=== PATIENT | male | born 2000 | race Caucasian/White ===

== ENCOUNTER 2021-09-03 20:06 | Emergency (ER) | payer SELFPAY ==
[2021-09-03 20:26] VITALS: BP 135/90; PULSE 68; RESP 18; TEMP 36.1; O2SAT 97; BMI 28.7
--- NOTE | 2021-09-03 20:39 | W.ED.GENADLT ---
HPI - General Adult General: Chief complaint: Nausea/Vomiting/Diarrhea Stated complaint: N/V abd pain Time Seen by Provider: 09/03/21 20:31 History of Present Illness: Patient is a 21-year-old male without any significant past medical history presents emergency room with complaints of right-sided abdominal pain since 4 PM today. Patient was at work when the pain suddenly started initially describes a generalized achy pain has now localized to the lateral right side. Patient denies any prior history of kidney stones, family hx of renal colic, hematuria or polyuria. Patient denies any new penile discharge or complaints. In the triage note, is noted the patient has diarrhea however to me patient denies having any diarrhea. Patient reports decreased p.o. intake. Patient reports significant nausea and vomiting with more than 30 episodes. Patient denies any fever but reports obstructive chills. Denies any chest pain, shortness breath palpitation, generalized weakness, rash, or focal neurological complaints. Onset:4pm Duration:ongoing Location:home Severity:moderate Associated symptoms: Reports nausea and vomiting; Deny chest pain, dyspnea, rash or palpitations Review of Systems Const: Denies: fever(s) or chills Eyes: Denies: change in vision ENMT: Denies: mouth pain Card: Denies: chest pain or palpitations Resp: Denies: dyspnea or non-productive cough GI: Reports: abdominal pain (+R sided abdominal pain), nausea and vomiting; Denies: diarrhea : Denies: dysuria Musc: Denies: extremity pain Skin/Breast: Denies: rash or new lesions Neuro: Denies: weakness in extremities Psych: Reports: other (Normal mood) Khoi/Lymph: Denies: easy bruising PFSH ED PFSH: Medical History (Updated 09/03/21 @ 21:46 by Eric Diaz MD) No pertinent past medical history Social History (Updated 09/03/21 @ 20:41 by Eric Diaz MD) Smoking and tobacco status: never smoked Alcohol intake: current Substance/Drug Use: never Physical Exam Const: COMMON NORMALS: alert HENMT: COMMON NORMALS: atraumatic HEAD & SCALP: atraumatic MOUTH: moist mucous membranes not abnormal Eye: COMMON NORMALS: EOMs intact bilaterally and conjunctivae normal CONJUNCTIVA: Yes conjunctivae normal Neck/C-Spine: COMMON NORMALS: full ROM and supple Resp: COMMON NORMALS: normal respiratory effort and clear to auscultation bilaterally AUSCULTATION: clear to auscultation bilaterally Cardio: COMMON NORMALS: regular rate RATE: regular rate GI: COMMON NORMALS: Soft to palpation PALPATION: Yes Soft to palpation OTHER: +Moderate R sided abd TTP. NO guarding rebound, guarding, rigidity. No CVA tenderness to percussion. Neg [place]/Neg McBurney's point tenderness, no suprabupic tenderness to palpation. Extremity: COMMON NORMALS: full ROM Neuro: SENSORIUM/ORIENTATION: Yes alert MOTOR EXAM: No Abnormal motor strength present and Other motor observations present (no focal motor deficits) Psych: COMMON NORMALS: speech normal SPEECH: Yes normal speech MOOD & AFFECT: Yes euthymic mood Course Vital Signs: Vital signs: Vital Signs Temperature 97 F L 09/03/21 20:26 Pulse Rate 68 09/03/21 20:26 Respiratory Rate 17 09/03/21 21:19 Blood Pressure 135/90 09/03/21 20:26 Pulse Oximetry 97 09/03/21 20:26 MDM - General Adult Medical Decision Making 21-year-old male presented to the emergency room with complaints of right-sided abdominal pain. On physical exam, patient is afebrile, has moderate tenderness to palpation on the right side. Work-up today showed count of 17.9K. CT of the pelvis showed enteritis with acute appendicitis without any perforation. Patient received cefazolin, morphine, Zofran with improvement in pain. Patient is kept n.p.o. We do not have general surgery coverage tonight patient. Patient will be transferred to outside hospital for management acute appendicitis. Case was discussed with Dr. Pagan who agreed with the transfer to [facility] for acute appendicitis. Disposition: Transfer to outside hospital Lab Data : 09/03/21 20:36 09/03/21 20:36 Radiology Impressions Abdomen/Pelvis CT 09/03/21 20:38 IMPRESSION: 1. Acute appendicitis, negative for abscess. 2. Bibasilar atelectasis versus minimal infiltrate. 3. Mildly prominent fluid in the small bowel without dilation may reflect an enteritis. ADDENDUM: 09/03/21 2144 THIS REPORT CONTAINS FINDINGS THAT MAY BE CRITICAL TO PATIENT CARE. The findings were verbally communicated via telephone conference with ERIC DIAZ at 9:42 PM CDT on 09/03/2021. The findings were acknowledged and understood. We discussed a prominent fluid in the small bowel may reflect an enteritis in the appropriate clinical setting, ileus may also be a consideration depending on the clinical scenario. Laboratory Results WBC 17.9 10^3/uL (4.0-10.0) H 09/03/21 20:36 RBC 5.36 10^6/uL (4.1-5.3) H 09/03/21 20:36 Hgb 16.8 g/dL (11.7-16.6) H 09/03/21 20:36 Hct 47.3 % (42.0-52.0) 09/03/21 20:36 MCV 88.2 fl (80-94) 09/03/21 20:36 MCH 31.3 pg (28.0-34.0) 09/03/21 20:36 MCHC 35.5 g/dL (30.0-36.0) 09/03/21 20:36 RDW 12.9 % (12.1-15.1) 09/03/21 20:36 Plt Count 301 10^3/cmm (130-400) 09/03/21 20:36 MPV 10.0 fL (7.4-10.4) 09/03/21 20:36 Neut % (Auto) 86.1 % 09/03/21 20:36 Lymph % (Auto) 7.2 % 09/03/21 20:36 [place] % (Auto) 4.7 % 09/03/21 20:36 Eos % (Auto) 1.3 % 09/03/21 20:36 Baso % (Auto) 0.4 % 09/03/21 20:36 Neut # (Auto) 15.37 10^3/uL (1.8-7.7) H 09/03/21 20:36 Lymph # (Auto) 1.3 10^3/uL (0.8-4.8) 09/03/21 20:36 [place] # (Auto) 0.8 10^3/uL (0.2-0.9) 09/03/21 20:36 Eos # (Auto) 0.2 10^3/uL (0.0-0.8) 09/03/21 20:36 Baso # (Auto) 0.1 10^3/uL (0.0-0.1) 09/03/21 20:36 Nucleated RBC % (auto) 0 % 09/03/21 20:36 Nucleated RBCs # 0.0 /100WBC 09/03/21 20:36 Sodium 137 mmol/L (136-145) 09/03/21 20:36 Potassium 4.2 mmol/L (3.5-5.1) 09/03/21 20:36 Chloride 99 mmol/L (98-107) 09/03/21 20:36 Carbon Dioxide 26 mmol/L (22-29) 09/03/21 20:36 Anion Gap 16.2 (5-19) 09/03/21 20:36 BUN 14 mg/dL (6-20) 09/03/21 20:36 Creatinine 0.9 mg/dL (0.7-1.2) 09/03/21 20:36 GFR Calculation 104.6 mL/min (90-130) 09/03/21 20:36 Glucose 133 mg/dL (65-115) H 09/03/21 20:36 Calculated Osmolality 286 mOsm/kg (285-295) 09/03/21 20:36 Calcium 10.3 mg/dL (8.5-10.5) 09/03/21 20:36 Total Bilirubin 0.8 mg/dL (0.15-1.2) 09/03/21 20:36 AST 28 U/L (0-40) 09/03/21 20:36 ALT 48 U/L (0-41) H 09/03/21 20:36 Alkaline Phosphatase 99 IU/L (40-130) 09/03/21 20:36 Total Protein 9.2 g/dL (6.6-8.7) H 09/03/21 20:36 Albumin 5.3 g/dL (3.5-5.2) H 09/03/21 20:36 Globulin 3.9 g/dL (1.3-4.6) 09/03/21 20:36 Lipase 20 U/L (13-60) 09/03/21 20:36 Imaging Data Other Imaging: Radiologist's impression: [address] [address] [address] Scan Report Signed with Addenda Patient: Sherman,Nando Unit #: [id number] : [id number] Age/Sex: 21 / M ADM Date: 09/03/21 Loc: ER Room/Bed: Attending Dr: Ordering Provider/Ordering MD: Eric Diaz MD Date of Service: 09/03/21 Procedure(s): CT abdomen pelvis w con* [id number] Accession Number(s): [id number] Report Number: [id number]/CT abdomen pelvis w con* [id number] THIS REPORT CONTAINS FINDINGS THAT MAY BE CRITICAL TO PATIENT CARE. The findings were verbally communicated via telephone conference with ERIC DIAZ at 9:42 PM CDT on 09/03/2021. The findings were acknowledged and understood. ? We discussed a prominent fluid in the small bowel may reflect an enteritis in the appropriate clinical setting, ileus may also be a consideration depending on the clinical scenario. ? Addendum Dictated By: ?Humphrey Alvarez MD Addendum Signed By: ?Humphrey Alvarez MD Signed Date/Time: 09/03/212143 Addendum Cosigned By: ? PROCEDURE INFORMATION: Exam: CT Abdomen And Pelvis With Contrast Exam date and time: 09/03/2021 9:07 PM Age: 21 years old Clinical indication: Nausea and vomiting; Additional info: Abd pain TECHNIQUE: Imaging protocol: Computed tomography of the abdomen and pelvis with contrast. Radiation optimization: All CT scans at this facility use at least one of these dose optimization techniques: automated exposure control; mA and/or kV adjustment per patient size (includes targeted exams where dose is matched to clinical indication); or iterative reconstruction. Contrast material: OMNI 300; Contrast volume: 95 ml; Contrast route: INTRAVENOUS (IV);? COMPARISON: CR Chest 1 [place] [id number] 12/07/2018 3:51 PM RADIATION DOSE METRICS: Total DLP (mGy-cm): 1941.54 FINDINGS: Lungs: Bibasilar atelectasis versus minimal infiltrate. Liver: Normal. No mass. Gallbladder and bile ducts: Normal. No calcified stones. No ductal dilation. Pancreas: Normal. No ductal dilation. Spleen: Normal. No splenomegaly. Adrenal glands: Normal. No mass. Kidneys and ureters: Normal. No hydronephrosis. Stomach and bowel: Mildly prominent fluid in the small bowel without dilation may reflect an enteritis. Appendix: Appendix dilated to 11.5 mm with wall thickening and surrounding edema consistent with acute appendicitis. Intraperitoneal space: Unremarkable. No free air. No significant fluid collection. Arteries: Unremarkable. No abdominal aortic aneurysm. Lymph nodes: Unremarkable. No enlarged lymph nodes. Urinary bladder: Unremarkable as visualized. Reproductive: Unremarkable as visualized. Bones/joints: Unremarkable. No acute fracture. Soft tissues: Unremarkable. CT/CT abdomen pelvis w con* [id number] IMPRESSION: 1. Acute appendicitis, negative for abscess. 2. Bibasilar atelectasis versus minimal infiltrate. 3. Mildly prominent fluid in the small bowel without dilation may reflect an enteritis. ? Dictated By: Humphrey Alvarez MD Signed By: Humphrey Alvarez MD Signed Date/Time: 09/03/212136 DD/ 06 Discharge Plan Discharge Patient Disposition: Transfer to ED Clinical Impression: Abdominal pain, Nausea & vomiting, Acute appendicitis Condition: Stable Prescriptions: No Action No Known Home Medications 0RF Referrals: Oz Lopez MD [Primary Care Provider] - Discharge Diet: Advance as tolerated Discharge Activity: Increase activity as tolerated Coding Level of Care Code ED [employer] for [place] Fwd Exam Comprehensive
[2021-09-03] MEDS: sodium chloride 0.9% 500 ML IV (20:40)
[2021-09-03] MEDS: famotidine 20 mg/2 mL INJ IVP (20:40)
[2021-09-03 20:43] LABS: Basophils # 0.1 10^3/uL (0.0-0.1); Basophils % 0.4 %; Eosinophils # 0.2 10^3/uL (0.0-0.8); Eosinophils % 1.3 %; Hematocrit 47.3 % (42.0-52.0); Hemoglobin 16.8 g/dL (11.7-16.6); Lymphocytes # 1.3 10^3/uL (0.8-4.8); Lymphocytes % 7.2 %; Mean Corpuscular HGB Conc 35.5 g/dL (30.0-36.0); Mean Corpuscular Hemoglobin 31.3 pg (28.0-34.0); Mean Corpuscular Volume 88.2 fl (80-94); Monocytes # 0.8 10^3/uL (0.2-0.9); Monocytes % 4.7 %; Neutrophils # 15.37 10^3/uL (1.8-7.7); Neutrophils % 86.1 %; Nucleated Red Blood Cells % 0 %; Platelet Count 301 10^3/cmm (130-400); Red Blood Count 5.36 10^6/uL (4.1-5.3); Red Cell Distribution Width 12.9 % (12.1-15.1); White Blood Count 17.9 10^3/uL (4.0-10.0)
[2021-09-03 21:05] LABS: Alanine Aminotransferase 48 U/L (0-41); Albumin Level 5.3 g/dL (3.5-5.2); Alkaline Phosphatase 99 IU/L (40-130); Anion Gap 16.2 (5-19); Aspartate Amino Transferase 28 U/L (0-40); Blood Urea Nitrogen 14 mg/dL (6-20); Calcium 10.3 mg/dL (8.5-10.5); Carbon Dioxide 26 mmol/L (22-29); Chloride 99 mmol/L (98-107); Creatinine Clr Calc Pharmacy 149.0594; Globulin 3.9 g/dL (1.3-4.6); Glomerular Filtration Rate 104.6 mL/min (90-130); Glucose 133 mg/dL (65-115); Lipase 20 U/L (13-60); Osmolality Calculated 286 mOsm/kg (285-295); Potassium 4.2 mmol/L (3.5-5.1); Sodium 137 mmol/L (136-145); Total Bilirubin 0.8 mg/dL (0.15-1.2); Total Protein 9.2 g/dL (6.6-8.7)
[2021-09-03] MEDS: iohexol 300 mg/mL 100 mL Btl IV (21:15)
[2021-09-03 21:19] VITALS: RESP 17
[2021-09-03] MEDS: morphine 4 mg/mL SDV 1 mL 2 MG IVP (21:19)
[2021-09-03] MEDS: ondansetron 2 mg/ML SDV 2 mL 4 MG IVP (22:12)
[2021-09-03] MEDS: HYDROmorphone 1 mg/mL INJ 1 mL 0.5 MG IVP (22:13)
[2021-09-03 22:25] VITALS: BP 127/71; PULSE 62; RESP 17; TEMP 36.7; O2SAT 97
[2021-09-03] MEDS: ceFAZolin 1,000 MG in sodium chloride 0.9% (plus) 50 ML 100 MG IV (22:32)
[2021-09-03 22:36] LABS: Add Urine Microscopic? NO; Charge for UA Resulting for Rev
[2021-09-03 23:13] LABS: Bilirubin Urine Neg (Negative); Blood Urine Neg (Negative); Glucose Urine UA Norm (Normal); Ketones Urine Negative (Negative); Leukocyte Esterase Urine Negative (Negative); Nitrate Urine Negative (Negative); Protein Urine Neg (Negative); Specific Gravity, Urine 1.005 (1.005-1.030); Sulfosalicylic Acid Urine Negative (Negative); Urine Appearance Clear (CLEAR); Urine Color Yellow (Yellow); Urobilinogen Urine Norm (Negative); pH Urine 8 (5-7)
[2021-09-03 23:15] VITALS: BP 127/71; PULSE 62; RESP 17; TEMP 36.7; O2SAT 97
== END 2021-09-03 23:16 ==
PROVIDERS: Emergency Provider Emergency Medicine; PCP Family Medicine
DX: K35.80 Unspecified acute appendicitis (principal); K52.9 Noninfective gastroenteritis and colitis, unspecified
CPT/HCPCS: 74177; 80053; 81003; 83690; 85025; 96365; 96375; 99284; J0690; J1170; J2270; J2405; J3490; J7040; Q9967